=== PATIENT | male | born 1955 | race African-American/Black ===

== ENCOUNTER → 2017-02-26 | Outpatient (CLI) | payer BC ==
[~2017-02-26] MED LIST: ASPERDRINK81 MG PO; CHOLESTEROL MEDICINE; LISINOPRIL; NOVOLIN N100 UNITS/ IM; NOVOLOG100 UNIT/2 SQ
== END | disposition home or self-care (01) ==
LOC: CDC 08:28
DX: R94.31 Abnormal electrocardiogram [ECG] [EKG] (principal); D49.4 Neoplasm of unspecified behavior of bladder
CPT/HCPCS: 93000

== ENCOUNTER 2017-09-26 16:54 | Emergency (ER) | payer BC ==
[~2017-09-26] VITALS: Ht 185.4 cm; Wt 85.0 kg
[2017-09-26 20:11] VITALS: BP 161/88
== END 2017-09-26 20:13 | disposition home or self-care (01) ==
LOC: EME 16:54
DX: E11.649 Type 2 diabetes mellitus with hypoglycemia without coma (principal); Z79.4 Long term (current) use of insulin; I10 Essential (primary) hypertension; Z79.82 Long term (current) use of aspirin; Z87.891 Personal history of nicotine dependence
CPT/HCPCS: 82948; 99281; 99285